=== PATIENT | male | born 1960 | race American Indian/Alaskan Native ===

== ENCOUNTER 2017-09-20 13:45 | Emergency (ER) | payer OTHER ==
[2017-09-20 13:56] VITALS: RESP 18; TEMP 97.6; O2SAT 97
--- NOTE | 2017-09-20 14:42 | CT ---
PROCEDURE: CT HEAD WITHOUT CONTRAST. HISTORY: headache COMPARISON: None available. TECHNIQUE: Axial computed tomography images were obtained through the head/brain without intravenous contrast. Radiation dose: Total exam DLP = 872.26 mGy-cm. This CT exam was performed using one or more of the following dose reduction techniques: Automated exposure control, adjustment of the mA and/or kV according to patient size, and/or use of iterative reconstruction technique. FINDINGS: HEMORRHAGE: No intracranial hemorrhage. BRAIN: No mass effect or edema. No atrophy or chronic microvascular ischemic changes. VENTRICLES: Unremarkable. No hydrocephalus. CALVARIUM: Unremarkable. PARANASAL SINUSES: Unremarkable as visualized. No significant inflammatory changes. MASTOID AIR CELLS: Unremarkable as visualized. No inflammatory changes. OTHER FINDINGS: None. IMPRESSION: Normal CT of the Head. No intracranial mass, hemorrhage or evidence of acute infarct
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
--- NOTE | 2017-09-20 15:08 | CT ---
PROCEDURE: CT Cervical Spine without contrast HISTORY: Neck pain COMPARISON: None available. TECHNIQUE: Axial computed tomography images were obtained of the cervical spine without the use of intravenous contrast. Coronal and sagittal reformatted images were created and reviewed. Radiation dose: Total exam DLP = 133.06 mGy-cm. This CT exam was performed using one or more of the following dose reduction techniques: Automated exposure control, adjustment of the mA and/or kV according to patient size, and/or use of iterative reconstruction technique. FINDINGS: VERTEBRAE: There is mild levocurvature in the lumbar spine. There is straightening of the cervical spine with loss of normal cervical lordosis. Vertebral alignment is normal. Vertebral height is maintained. There is no acute fracture or traumatic anterior listhesis. The craniocervical junction is normal. The atlantoaxial joint is normal. DISCS/SPINAL CANAL/NEURAL FORAMINA: There is moderate degenerative disc disease at C6-7 with a broad-based central disc protrusion which indents the ventral thecal sac with resultant moderate spinal canal stenosis. Mild bilateral facet arthropathy contributes to severe right and moderate left neural foraminal stenosis. 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 PARASPINAL SOFT TISSUES: No prevertebral soft tissue thickening. The paraspinous soft tissues are normal OTHER FINDINGS: None. IMPRESSION: No acute fracture or traumatic anterior listhesis. Straightening of the cervical spine may be positional or related to muscle spasm. Moderate degenerative disc disease at C6-7 with a broad-based central disc protrusion and moderate spinal canal stenosis, severe right and moderate left neural foraminal stenosis.
--- NOTE | 2017-09-20 15:27 | RAD ---
PROCEDURE: Radiographs of the Lumbar Spine. HISTORY: Back pain COMPARISON: No prior. FINDINGS: BONES: There is normal alignment of the lumbar vertebral bodies. There is normal lumbar lordosis. There is no acute fracture, spondylolysis or spondylolisthesis. Bone mineralization is normal DISC SPACES: There is mild multilevel degenerative disc disease with anterior spurring, mild reduced disc heights and multilevel facet arthropathy, worse at L5-S1. OTHER FINDINGS: No pathologic soft tissue calcifications. There is mild degenerative osteoarthrosis in the sacroiliac joints. IMPRESSION: Mild multilevel degenerative disc disease, worse at L5-S1. No acute fracture, spondylolysis or spondylolisthesis.
[2017-09-20 15:47] LABS: BASO # 0.1 K/uL (0.0-0.2); BASO % 0.7 % (0.0-2.0); EOS # 0.1 K/uL (0.0-0.7); EOS % 0.9 % (0.0-4.0); HEMOGLOBIN 15.9 g/dL (12.0-18.0); LYMPH % 23.1 % (20.0-40.0); MEAN CELL VOLUME 97.6 fl (80.0-94.0); MEAN CORPUSCULAR HEMOGLOBIN 32.6 pg (27.0-31.0); MEAN CORPUSCULAR HGB CONC 33.4 g/dL (33.0-37.0); MEAN PLATELET VOLUME 9.2 fl (7.2-11.7); MONO % 11.3 % (0.0-10.0); NEUT # 5.5 K/uL (1.8-7.0); NRBC % 0.1 % (0.0-0.0); RBC 4.88 Mil/uL (4.40-5.90); RED CELL DISTRIBUTION WIDTH 13.5 % (11.5-14.5); WHITE BLOOD COUNT 8.5 K/uL (4.8-10.8)
[2017-09-20 16:04] LABS: ALB/GLOB RATIO 1.4 (1.0-2.1); ALBUMIN 4.7 g/dL (3.5-5.0); ALT/SGPT 45 U/L (21-72); AST/SGOT 37 U/L (17-59); BLOOD UREA NITROGEN 17 mg/dl (9-20); CALCIUM 9.6 mg/dL (8.4-10.2); GFR AFRICAN-AMERICAN > 60; GFR NON-AFRICAN AMERICAN > 60
[2017-09-20 16:40] VITALS: BP 130/84
[2017-09-20 17:12] VITALS: PULSE 89
--- NOTE | 2017-09-21 10:51 | CARD ---
APPROVED REPORT EKG Measurement Heart [id number] OR 154P-11 [id number] <Conclusion> Normal sinus rhythm Normal ECG
== END 2017-09-20 17:15 | disposition home or self-care (01) ==
LOC: H.ER 13:45
DX: M54.12 Radiculopathy, cervical region (principal); V43.52XA Car driver injured in collision with other type car in traffic accident, initial encounter; Y92.410 Unspecified street and highway as the place of occurrence of the external cause; I10 Essential (primary) hypertension